=== PATIENT | female | born 1990 | race Caucasian/White ===

== ENCOUNTER 2017-10-23 09:20 | Outpatient (RCR) | payer BC, SELFPAY | END 2017-10-23 17:00 | disposition home or self-care (01) | LOC: PT 09:20 | PROVIDERS: Family Provider Nurse Practitioner Family; Visit Provider Nurse Practitioner Family | DX: S23.3XXA Sprain of ligaments of thoracic spine, initial encounter (principal); M41.25 Other idiopathic scoliosis, thoracolumbar region | CPT/HCPCS: 97014; 97110; 97163; G0283 ==

== ENCOUNTER 2018-03-01 10:06 | Outpatient (RCR) | payer BC, SELFPAY | END 2018-03-01 10:07 | disposition home or self-care (01) | LOC: PT 10:06 | PROVIDERS: Family Provider Nurse Practitioner Family; Visit Provider Nurse Practitioner Family | DX: M41.9 Scoliosis, unspecified (principal) | CPT/HCPCS: 97163 ==

== ENCOUNTER 2018-04-30 16:00 | Outpatient (RCR) | payer OTHER, BC, SELFPAY | END 2018-05-07 16:05 | disposition home or self-care (01) | LOC: PT 16:00 | PROVIDERS: Family Provider Nurse Practitioner Family; Visit Provider Nurse Practitioner Family | DX: M54.5 Low back pain (principal); M25.552 Pain in left hip | CPT/HCPCS: 97110; 97140; 97163 ==

== ENCOUNTER → 2019-02-28 07:10 | Outpatient (CLI) | payer BC, SELFPAY ==
--- NOTE | 2019-02-28 07:14 | US_ITS ---
PROCEDURE: US ABDOMEN COMPLETE CLINICAL INDICATION: ABD PAIN Upper abdominal pain, lower abdominal pain, nausea COMPARISON: No exams were available for comparison FINDINGS: PANCREAS: Unremarkable. No obvious mass or abnormal fluid collection. No ductal dilatation LIVER: No focal liver lesions demonstrated. Homogeneous echogenicity. No intrahepatic biliary ductal dilatation evident. There is appropriate direction of blood flow within a non dilated portal vein RIGHT KIDNEY: Unremarkable. Normal size and echogenicity. No hydronephrosis LEFT KIDNEY: Unremarkable. Normal size and echogenicity. No hydronephrosis GALLBLADDER: Status post cholecystectomy. Common bile duct is normal at 2 mm. AORTA: No evidence of aneurysmal dilatation. SPLEEN: Unremarkable. Normal size and echogenicity ASCITES: None demonstrated. IMPRESSION: Status post cholecystectomy otherwise negative Dictated by: Marc Samson MD 02/28/2019 16:04 Signed by: <Electronically signed by Marc Samson MD in [place]> 02/28/2019 16:04
--- NOTE | 2019-02-28 07:14 | US_ITS ---
PROCEDURE: US TRANSVAGINAL CLINICAL INDICATION: ABD PAIN COMPARISON: No exams were available for comparison TECHNIQUE: Pelvic pain FINDINGS: UTERUS: The uterus measures 8.5 x 3.6 x 4.4 cm. Combined endometrial thickness is 9 mm. No uterine mass evident.. RIGHT OVARY: Measures enlarged at 5 x 3.5 by 4.8 cm and contains a 3.7 cm cyst. Blood flow is present LEFT OVARY: Measures 2.8 x 1.9 cm and contains small follicles. Blood flow is noted CUL-DE-SAC FLUID: Small amount of fluid in the cul-de-sac OTHER FINDINGS: IMPRESSION: 3.7 cm right ovarian cyst with small amount of fluid in the cul-de-sac Dictated by: Marc Samson MD 02/28/2019 17:38 Signed by: <Electronically signed by Marc Samson MD in [place]> 02/28/2019 17:38
== END ==
PROVIDERS: PCP Nurse Practitioner Family; Visit Provider Nurse Practitioner Family
DX: R10.9 Unspecified abdominal pain (principal)
CPT/HCPCS: 76700; 76830

== ENCOUNTER 2020-11-07 11:25 | Emergency (ER) | payer BC, SELFPAY ==
[2020-11-07 11:32] VITALS: BP 117/79; PULSE 99; RESP 18; TEMP 36.6; O2SAT 99; BMI 25.6
[2020-11-07 12:50] VITALS: BP 117/79; PULSE 99; RESP 18; TEMP 36.6; O2SAT 99; BMI 25.6
[2020-11-07 12:55] VITALS: BP 117/79; PULSE 99; RESP 18; TEMP 36.6; O2SAT 99
[2020-11-07 13:07] LABS: Color,Urine Yellow (Yellow)
--- NOTE | 2020-11-07 13:07 | HMH.EDUTC ---
[facility] [place] Clinical Impression: UTI (urinary tract infection) Qualifiers: Urinary tract infection type: site unspecified Hematuria presence: with hematuria Qualified Code(s): N39.0 - Urinary tract infection, site not specified Disposition: Home, Self-Care Condition on Discharge: Good Instructions: Urinary Tract Infection Additional Instructions: Drink plenty of fluids. Take tylenol or ibuprofen for pain or fever. Take the medications as directed. Follow up with your regular doctor. GO TO THE ER FOR ANY WORSENING SYMPTOMS The pyridium will make your urine turn orange, this is an expected side effect. It will stain your clothes if it comes into contact with them. Prescriptions: Ondansetron [Zofran 4mg ODT] 4 mg PO Q8HP PRN #12 tab.rapdis PRN Reason: Nausea [facility] Nitrofurantoin Monohyd/M-Cryst [Macrobid 100 mg Capsule] 100 mg PO BID 5 Days #10 cap Transmission Status: [facility] Phenazopyridine HCl [Pyridium 200mg Tablet] 200 pow PO TID #6 tab [facility] Referrals: Pushpa Story APRN [Primary Care Provider] - Time of Disposition: 13:11 Medical Decision Making - Medical Records Medical records reviewed: No: I reviewed the patient's medical records. - Morales Inquiry Pt receiving controlled substance: No Vital Signs: 11/07/20 11:32 11/07/20 12:50 11/07/20 12:55 Temperature 97.8 F 97.8 F 97.8 F Temperature Source Oral Oral Pulse Rate 99 H Pulse Rate [Left Radial] 99 H 99 H Respiratory Rate 18 18 18 Blood Pressure 117/79 Blood Pressure [Left Arm] 117/79 117/79 Blood Pressure Mean [Left Arm] 91 91 Blood Pressure Source [Left Arm] Automatic Cuff Automatic Cuff Blood Pressure Position [Left Arm] Sitting Sitting 02 Sat by Pulse Oximetry 99 99 Oxygen Delivery Method Room Air Room Air - Lab Data Lab results reviewed: Yes: I reviewed the patient's lab results. Lab Results 11/07/20 12:58: Urine Color Yellow, Urine Appearance Cloudy, Urine pH 7.0, Ur Specific Panacea 1.025, Urine Protein 3+, Urine Glucose (UA) Negative, Urine Ketones 80, Urine Blood 3+, Urine Nitrate Positive A, Urine Bilirubin Negative, Urine Urobilinogen 1, Ur Leukocyte Esterase 1+ A Orders (Tests/Meds): ORDERS Category Date Time Status Urine Culture Stat Micro 11/07/20 12:45 Received [facility] HPI - General Stated complaint: vomiting, stomach pain, burning during urnination Time Seen by Provider: 11/07/20 13:07 Mode of Arrival: Ambulatory Source of Information: Patient Limitations: No Limitations Description of Symptoms (Recalled from Triage Doc. by RN): Hurting up inside and possibly stomach virus HEENT Symptoms (Recalled from RN notes): No Resp Symptoms (Recalled from RN notes): No Skin Symptoms (Recalled from RN notes): No MS Symptoms (Recalled from RN notes): No Functional Status (Recalled from RN notes): wnl - History of Present Illness Provider Complaint: she states that she has been having low back pain and burning while urinating for the past 2 days. - Related Data Previous Rx's Medication Instructions Recorded cetirizine 10 mg tablet 10 mg PO DAILY PRN #30 tab 10/28/20 gabapentin 100 mg capsule 100 mg PO TID #90 cap 10/28/20 methocarbamol 500 mg tablet 500 mg PO BID #60 tab 10/28/20 norgestimate 0.25 mg-ethinyl 1 tab PO DAILY #28 tab 10/28/20 estradiol 35 mcg tablet omeprazole magnesium 10 mg oral 10 mg PO DAILY #30 each 10/28/20 suspension,delayed release propranolol 60 mg capsule,24 60 mg PO DAILY #30 cap 10/28/20 hr,extended release quetiapine 100 mg tablet 100 mg PO HS #30 tab 10/28/20 vilazodone 20 mg tablet 20 mg PO DAILY #30 tab 10/28/20 Nitrofurantoin Monohyd/M-Cryst 100 mg PO BID 5 Days #10 cap 11/07/20 [Macrobid 100 mg Capsule] Ondansetron [Zofran 4mg ODT] 4 mg PO Q8HP PRN #12 tab.rapdis 11/07/20 Phenazopyridine HCl
[2020-11-07 13:08] LABS: Apearance,Urine Cloudy (Clear); Specific Gravity, Urine 1.025 (1.005-1.030)
[2020-11-07 13:09] LABS: Bilirubin,Urine Negative (Negative); Blood, Urine 3+ (Negative); Glucose,Urine (UA) Negative (Negative); Ketones,Urine 80 (Negative); Protein,Urine 3+ (Negative)
[2020-11-07 13:10] LABS: UTC Leukocyte Esterase,Urine 1+ (Negative); UTC Nitrate,Urine Positive (Negative); Urobilinogen,Urine 1 EU/dl (0.2)
== END 2020-11-07 13:14 | disposition home or self-care (01) ==
PROVIDERS: Emergency Provider Nurse Practitioner Family; PCP Nurse Practitioner Family
DX: N30.00 Acute cystitis without hematuria (principal); F41.8 Other specified anxiety disorders; E78.5 Hyperlipidemia, unspecified; F17.210 Nicotine dependence, cigarettes, uncomplicated; Z79.899 Other long term (current) drug therapy
CPT/HCPCS: 81003; 87077; 87086; 99202; G0463

== ENCOUNTER → 2020-11-16 08:03 | Outpatient (CLI) | payer BC, SELFPAY ==
--- NOTE | 2020-11-16 08:07 | CT_ITS ---
PROCEDURE: CT ABDOMEN PELVIS WO CON CLINICAL INDICATION: HEMATURIA COMPARISON: US US ABDOMEN COMPLETE from 02/28/2019 TECHNIQUE: Axial images obtained with sagittal and coronal reformats. All CT scans at the facility use one or more dose reduction, viz: automated exposure control, ma/kV adjustment per patient size (including targeted exams where dose is matched to indication, i.e. head), or iterative reconstruction technique. FINDINGS: LOWER THORAX: Atelectatic or fibrotic changes are present in the lung bases. ABDOMEN & PELVIS: Prior cholecystectomy. The liver, spleen, adrenal glands, and pancreas have an unremarkable appearance. No renal or ureteral calculi are evident. There is some heterogeneous density in the proximal right ureteral region. This may be related to partially duplicated ureter or small ureterocele. CT of the kidneys with renal protocol without and with contrast suggested for further evaluation. The left kidney has an unremarkable appearance. No intestinal obstruction or free air. No evidence of appendicitis or diverticulitis. No pelvic mass or abnormal fluid collection. There is mild thoracolumbar scoliosis convex left. There is a tiny umbilical hernia containing fat. IMPRESSION: 1. No renal or ureteral calculi. 2. Heterogeneous density of the proximal right ureter possibly related to partial duplex collecting system or small ureterocele. CT of the kidneys without and with contrast with renal protocol suggested for further evaluation. Dictated by: Marc Samson MD 11/16/2020 08:50 Marc Samson MD in [place] 11/16/2020 08:50
== END ==
PROVIDERS: PCP Nurse Practitioner Family; Visit Provider Nurse Practitioner Family
DX: R31.9 Hematuria, unspecified (principal)
CPT/HCPCS: 74176

== ENCOUNTER → 2020-11-18 11:00 | Outpatient (CLI) | payer BC, SELFPAY ==
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
== END ==
PROVIDERS: PCP Nurse Practitioner Family; Visit Provider Nurse Practitioner Family
DX: D41.01 Neoplasm of uncertain behavior of right kidney (principal)
CPT/HCPCS: 74170; Q9967

== ENCOUNTER → 2020-11-25 18:59 | Outpatient (CLI) | payer BC, SELFPAY | PROVIDERS: Visit Provider Nurse Practitioner Family | DX: M54.9 Dorsalgia, unspecified (principal); G89.29 Other chronic pain | CPT/HCPCS: 87086; 87088; 87186 ==

== ENCOUNTER → 2021-02-24 14:34 | Outpatient (CLI) | payer BC, SELFPAY ==
[2021-02-24 15:51] LABS: Amphetamine/Metha Screen,Urine Negative ng/ml (<1000)
[2021-02-24 15:52] LABS: Barbiturates Screen,Urine Negative ng/ml (<200); Benzodiazepines Screen,Urine Negative ng/ml (<200)
[2021-02-24 15:53] LABS: Cannabinoid Screen,Urine Positive ng/ml (<50)
[2021-02-24 15:54] LABS: Cocaine Screen,Urine Negative ng/ml (<300); Methadone Screen,Urine Negative ng/ml (<300)
[2021-02-24 15:55] LABS: Opiate Screen,Urine Negative ng/ml (<300); Phencyclidine Screen,Urine Negative ng/ml (<25)
== END ==
PROVIDERS: Visit Provider Nurse Practitioner Family
DX: Z79.899 Other long term (current) drug therapy (principal)
CPT/HCPCS: 80305

== ENCOUNTER 2021-03-14 15:23 | Emergency (ER) | payer BC, SELFPAY ==
[2021-03-14 15:10] VITALS: BP 114/74; PULSE 76; RESP 18; TEMP 37.1; O2SAT 100; BMI 28.8
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
[2021-03-14 15:40] LABS: Urine Pregnancy, HCG Qual. Negative (Negative)
[2021-03-14 16:30] VITALS: BP 111/70; PULSE 68; O2SAT 100
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
[2021-03-14 17:00] VITALS: BP 133/84; PULSE 72; O2SAT 100
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
--- NOTE | 2021-03-14 17:38 | PC.NURSE ---
pt with rad
[2021-03-14 18:12] VITALS: BP 133/84; PULSE 72; RESP 18; TEMP 37.1; O2SAT 100
== END 2021-03-14 18:13 | disposition home or self-care (01) ==
PROVIDERS: Emergency Provider Emergency Medicine; PCP Nurse Practitioner Family
DX: S16.1XXA Strain of muscle, fascia and tendon at neck level, initial encounter (principal); S29.011A Strain of muscle and tendon of front wall of thorax, initial encounter; S80.212A Abrasion, left knee, initial encounter; V43.63XA Car passenger injured in collision with pick-up truck in traffic accident, initial encounter; Y92.488 Other paved roadways as the place of occurrence of the external cause
CPT/HCPCS: 70450; 71046; 72125; 73000; 73502; 73552; 73562; 81025; 96372; 99282

== ENCOUNTER → 2021-03-24 17:19 | Outpatient (CLI) | payer BC, SELFPAY ==
[2021-03-24 19:10] LABS: Barbiturates Screen,Urine Negative ng/ml (<200)
[2021-03-24 19:11] LABS: Amphetamine/Metha Screen,Urine Negative ng/ml (<1000); Benzodiazepines Screen,Urine Negative ng/ml (<200)
[2021-03-24 19:12] LABS: Cannabinoid Screen,Urine Negative ng/ml (<50)
[2021-03-24 19:13] LABS: Cocaine Screen,Urine Negative ng/ml (<300); Methadone Screen,Urine Negative ng/ml (<300)
[2021-03-24 19:14] LABS: Opiate Screen,Urine Negative ng/ml (<300); Phencyclidine Screen,Urine Negative ng/ml (<25)
== END ==
PROVIDERS: Visit Provider Nurse Practitioner Family
DX: G62.9 Polyneuropathy, unspecified (principal); Z79.899 Other long term (current) drug therapy
CPT/HCPCS: 80305

== ENCOUNTER 2021-04-03 22:29 | Emergency (ER) | payer BC, SELFPAY ==
[2021-04-03 22:30] VITALS: BP 132/73; PULSE 105; RESP 16; TEMP 36.9; O2SAT 98; BMI 29.5
[2021-04-03 23:15] LABS: Microscopic, Urine URINE MICROSCOPIC (MICROSCOPIC)
[2021-04-03 23:17] LABS: Appearance,Urine CLEAR (Clear); Bilirubin,Urine Negative (Negative); Blood, Urine 1+ (Negative); Color,Urine YELLOW (Yellow); Glucose,Urine (UA) Negative (Negative); Ketones,Urine Negative (Negative); Leukocyte Esterase,Urine Negative (Negative); Nitrate,Urine Negative (Negative); Protein,Urine Negative (Negative); Specific Gravity, Urine 1.015 (1.005-1.030); Urobilinogen,Urine 0.2 EU/dl (0.2)
[2021-04-03 23:21] LABS: Urine Pregnancy, HCG Qual. Negative (Negative)
[2021-04-03 23:22] LABS: Amorphous Sediment,Urine 1+ /lpf; WBC,Urine Occasional #/hpf (0-3)
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
[2021-04-03 23:50] LABS: Basophils # 0.1 K/mm3 (0-0.2); Basophils % 1.1 % (0.1-2.0); Eosinophils # 0.2 K/mm3 (0.0-0.4); Eosinophils % 2.5 % (0.1-12.0); Hematocrit 41.1 % (37.0-47.0); Hemoglobin 13.9 g/dL (12.2-16.2); Lymphocytes # 2.2 K/mm3 (0.7-4.5); Lymphocytes % 31.4 % (10-50); Mean Corpuscular HGB Conc 33.8 g/dL (31.8-35.4); Mean Corpuscular Hemoglobin 31.7 pg (27.0-31.2); Mean Corpuscular Volume 93.6 fl (81-99); Mean Platelet Volume 8.2 fl (7.4-10.4); Monocytes # 0.4 K/mm3 (0.1-1.0); Monocytes % 5.8 % (1.7-9.3); Neutrophils # 4.1 K/mm3 (1.8-7.8); Neutrophils % 59.1 % (37.0-80.0); Platelet Count 282 K/mm3 (142-424); Red Blood Count 4.39 M/mm3 (4.20-5.40); Red Cell Distribution Width 13.5 % (11.5-17.5); White Blood Count 6.9 K/mm3 (4.8-10.8)
[2021-04-04 00:01] LABS: Alanine Aminotransferase 19 U/L (12-78); Albumin/Globulin Ratio 1.2 (1.1-1.8); Alkaline Phosphatase 63 U/L (38-126); Amylase 65 U/L (30-110); Anion Gap 6.3 mEq/L (5-15); Aspartate Amino Transferase 31 U/L (14-36); Bilirubin,Total 0.4 mg/dl (0.2-1.3); Blood Urea Nitrogen 7 mg/dl (7-17); Calcium 9.2 mg/dl (8.4-10.2); Carbon Dioxide 27 mmol/L (22.0-30.0); Chloride 105 mmol/L (98-107); Creatinine Clearance Estimated 145 mL/min (50-200); Estimated Glomerular Filt Rate 118 ml/min (>60); GFR (African American) 143 ML/MIN (>60); Globulin 3.3 g/dL (1.3-3.2); Glucose 91 mg/dl (74-100); Lipase 36 U/L (23-300); Potassium 3.3 mmoL/L (3.5-5.1); Sodium 135 mmol/L (136-145); Total Protein,Serum 7.3 g/dl (6.3-8.2)
--- NOTE | 2021-04-04 00:03 | HMH.EDNVD ---
ED Disposition Clinical Impression: Abdominal pain Qualifiers: Abdominal location: epigastric Qualified Code(s): R10.13 - Epigastric pain Disposition: Home, Self-Care Condition on Discharge: Good Instructions: DI for Nausea -- Adult Additional Instructions: see pcp for follow up Prescriptions: ondansetron HCL [Zofran 4mg Tab] 4 mg PO TID #21 tab Transmission Status: Pending to [facility] Referrals: Valeriy Scott APRN [Primary Care Provider] - - Critical Care Critical Care Time: No Attestation: On 04/03/21, the high probability of a clinically significant, sudden or life threatening deterioration of the following system(s) required my full and direct attention, intervention and personal management. The time I documented below is in addition to time spent performing reported procedures but includes the following listed in this critical care notation. Medical Decision Making - Medical Records Medical records reviewed: Yes: I reviewed the patient's medical records. - Morales Inquiry Pt receiving controlled substance: No Vital Signs: 04/03/21 22:30 Temperature 98.4 F Temperature Source Oral Pulse Rate [Right] 105 H Respiratory Rate 16 Blood Pressure [Right Arm] 132/73 Blood Pressure Mean [Right Arm] 92 02 Sat by Pulse Oximetry 98 - Lab Data Lab results reviewed: Yes: I reviewed the patient's lab results. Lab Results 04/03/21 23:05: Urine HCG, Qual Negative 04/03/21 23:05: Urine Color Yellow, Urine Appearance Clear, Urine pH 6.0, Ur Specific [place] 1.015, Urine Protein Negative, Urine Glucose (UA) Negative, Urine Ketones Negative, Urine Blood 1+, Urine Nitrate Negative, Urine Bilirubin Negative, Urine Urobilinogen 0.2, Ur Leukocyte Esterase Negative, Urine RBC 5-10, Urine WBC Occasional, Ur Squamous Epith Cells 10-20, Amorphous Sediment 1+ 04/03/21 23:05: Urine Opiates Screen Negative, Urine Methadone Screen Negative, Ur Barbituates Screen Negative, Ur Phencyclidine Scrn Negative, Ur Amphetamines Screen Negative, U Benzodiazepines Scrn Negative, Urine Cocaine Screen Negative, U Marijuana (THC) Screen Positive H 04/03/21 23:29: WBC 6.9, RBC 4.39, Hgb 13.9, Hct 41.1, MCV 93.6, MCH 31.7 H, MCHC 33.8, RDW 13.5, Plt Count 282, MPV 8.2, Neut % (Auto) 59.1, Lymph % (Auto) 31.4, Lee % (Auto) 5.8, Eos % (Auto) 2.5, Baso % (Auto) 1.1, Neut # (Auto) 4.1, Lymph # (Auto) 2.2, Lee # (Auto) 0.4, Eos # (Auto) 0.2, Baso # (Auto) 0.1, ESR 27 H 04/03/21 23:29: Sodium 135 L, Potassium 3.3 L, Chloride 105, Carbon Dioxide 27, Anion Gap 6.3, BUN 7, Creatinine 0.60, Estimated Creat Clear 145, Estimated GFR 118, Est GFR ( Amer) 143, Glucose 91, Calcium 9.2, Total Bilirubin 0.4, AST 31, ALT 19, Alkaline Phosphatase 63, C-Reactive Protein 11.2 H, Total Protein 7.3, Albumin 4.0, Globulin 3.3 H, Albumin/Globulin Ratio 1.2, Amylase 65, Lipase 36, Procalcitonin 0.031 Result diagrams: 04/03/21 23:29 04/03/21 23:29 Orders (Tests/Meds): ED MEDICATIONS Generic Name Dose Route Start Last Admin Trade Name Freq PRN Reason Stop Dose Admin Sodium Chloride 1,000 mls @ 999 mls/hr 04/03/21 23:45 04/04/21 00:18 Sod Chlor 0.9% 1000ml Bag IV 04/04/21 00:45 999 mls/hr .Q1H1M NELLA Administration Sodium Chloride 8 ml 04/03/21 23:39 Sodium Chloride 0.9% 10ml Vial IV 05/03/21 23:38 NEEDED PRN dilute pepcid Discontinued Medications Generic Name Dose Route Start Last Admin Trade Name Freq PRN Reason Stop Dose Admin Famotidine 20 mg 04/03/21 23:39 04/04/21 00:17 Famotidine 20mg/2ml Vial IV 04/03/21 23:40 20 mg ONCE ONE Administration Iopamidol 75 ml 04/03/21 23:54 04/03/21 23:55 Iopamidol-370 (76%);100ml Bottle IV 04/03/21 23:55 75 ml ONCE ONE Administration Ketorolac Tromethamine 30 mg 04/03/21 23:39 04/04/21 00:17 Ketorolac 30mg/Ml Vial IV 04/03/21 23:40 30 mg ONCE ONE Administration Metoclopramide HCl 10 mg 04/03/21 23:39 04/04/21 00:17 Metoclopramide Hc
[2021-04-04 00:07] LABS: C-Reactive Protein 11.2 mg/L (0-4)
[2021-04-04 00:08] LABS: Barbiturates Screen,Urine Negative ng/ml (<200); Benzodiazepines Screen,Urine Negative ng/ml (<200)
[2021-04-04 00:09] LABS: Amphetamine/Metha Screen,Urine Negative ng/ml (<1000)
[2021-04-04 00:10] LABS: Cannabinoid Screen,Urine Positive ng/ml (<50); Cocaine Screen,Urine Negative ng/ml (<300)
[2021-04-04 00:11] LABS: Methadone Screen,Urine Negative ng/ml (<300)
[2021-04-04 00:12] LABS: Opiate Screen,Urine Negative ng/ml (<300); Phencyclidine Screen,Urine Negative ng/ml (<25)
[2021-04-04 00:20] LABS: Procalcitonin 0.031 ng/mL (0.0-2.0)
[2021-04-04 00:30] LABS: Erythrocyte Sedimentation Rate 27 mm/hr (0-20)
[2021-04-04 01:59] VITALS: BP 124/72; PULSE 100; RESP 16; TEMP 36.9; O2SAT 98
== END 2021-04-04 02:02 | disposition home or self-care (01) ==
PROVIDERS: Emergency Provider Emergency Medicine; PCP Nurse Practitioner Family
DX: R10.13 Epigastric pain (principal); F41.8 Other specified anxiety disorders; E78.5 Hyperlipidemia, unspecified; F17.210 Nicotine dependence, cigarettes, uncomplicated; Z88.0 Allergy status to penicillin; Z88.2 Allergy status to sulfonamides
CPT/HCPCS: 74177; 80053; 80305; 81001; 81025; 82150; 83690; 84145; 85025; 85651; 86140; 96365; 96375; 99283; J2405; Q9967

== ENCOUNTER 2021-04-12 11:19 | Emergency (ER) | payer BC, SELFPAY ==
[2021-04-12 12:25] VITALS: BP 126/77; PULSE 84; RESP 20; TEMP 36.8; O2SAT 100; BMI 29.5
--- NOTE | 2021-04-12 12:55 | HMH.EDUTC ---
[facility] [place] Disposition Clinical Impression: URI (upper respiratory infection) Qualifiers: URI type: unspecified URI Qualified Code(s): J06.9 - Acute upper respiratory infection, unspecified Nausea and vomiting Qualifiers: Vomiting type: unspecified Vomiting Intractability: unspecified Qualified Code(s): R11.2 - Nausea with vomiting, unspecified Disposition: Home, Self-Care Condition on Discharge: Good Instructions: Sinusitis, Diarrhea, DI for Ear Pain-Adult, Nausea and Vomiting-Adult Additional Instructions: *Monitor Temp, Over the counter Motrin or Tylenol as directed/as needed Tylenol every 4 hours and Motrin every 6 hours (as long as your family doctor has told you that you can take it) for fever or pain. and straight to ER if unable to lower temp less than 101.0 after medication given *Warm salt water gargles may help to soothe the throat *Throat Lozenges *Warm fluids like tea with honey may help to soothe the throat *Sleep elevated *Humidifier/Vaporizer *Drink extra fluids with and between meals. If you have difficulty drinking, try very small amounts of water or suck on ice chips. ? Avoid fruit juices, as these do not replace minerals and can actually increase diarrhea. ? Children and adults can use sports drinks to replenish electrolytes. Younger children and infants should use products formulated for children, like oral rehydration solutions. ? Eat food in small amounts and let your stomach recover. ? Get lots of rest. You may feel tired or weak. ? No greasy or fried foods for the next 24-48 hours BRAT diet Bananas Rice Apples and Radar Base ? Make sure to drink plenty of liquids ? Return if needed ? Straight to ER if any life threatening symptoms ? Zofran as prescribed ? You was given an outpatient order for diarrhea panel, please collect specimen and bring back to outpatient lab then call back to the [facility] or follow up with family doctor for results ? Follow up with family doctor in the next 48-72 hours if no improvement or any worsening of symptoms Your throat swab was sent for culture. Those results are typically sent to your primary care. Be sure to follow up in 2-3 days with your family doctor/primary care physician if no improvement so they can review those result and treat if necessary. If you don?t have a primary care doctor, I recommend you get one but in the mean time, you will have to return to a walk in clinic Follow up IMMEDIATELY for new or worsening symptoms or no Noticeable improvement over the next 48-72 hours. 911 for difficulty breathing or swallowing You were tested for today for COVID19 your test result should be back in the next 24-48 hours, you was given handout on how to [facility] to get your results if you have trouble logging on you may call the [facility] You was given a handout with instructions for Self Quarantine and Self isolation for while you wait on test results and what to do if they are positive If you are positive the Health Dept will be contacting you also Make sure to take your Vitamins Vit. C Vit D and Zinc if you can take them Prescriptions: Fluticasone Propionate [Flonase 50mcg nasal spray 16gm] 1 spr NS DAILY #1 each Transmission Status: Pending to [facility] Azithromycin [Z-Mike 250mg Tab] 250 mg PO DIRECTED #6 tab Transmission Status: Pending to [facility] Ondansetron [Zofran 4mg ODT] 4 mg PO TIDP PRN #10 tab PRN Reason: Nausea Transmission Status: Pending to [facility] Referrals: Provider,Referral, MD [Primary Care Provider] - As needed Forms: Work/School Release Time of Disposition: 13:10 Medical Decision Making - Morales Inquiry Pt receiving controlled substance: No Morales was queried for this patient: No Vital Signs: 04/12/21 12:25 04/12/21 13:17 Temperature 98.2 F 98.2 F Temperature Source Oral Pulse Rate 84 Pulse Rate [Right Brachial] 84 Respiratory Rate 20 20 Blood Pressure 126/77 Blood Pressure [Right Arm] 126/77 B
[2021-04-12 12:56] LABS: UTC Strep Screen (Rapid) Negative (Negative)
[2021-04-12 13:14] LABS: UTC Pregnancy Test, Urine Negative (Negative)
[2021-04-12 13:17] VITALS: BP 126/77; PULSE 84; RESP 20; TEMP 36.8; O2SAT 100
== END 2021-04-12 13:23 | disposition home or self-care (01) ==
PROVIDERS: Emergency Provider Nurse Practitioner
DX: Z20.822 Contact with and (suspected) exposure to COVID-19 (principal); J06.9 Acute upper respiratory infection, unspecified; R11.2 Nausea with vomiting, unspecified
CPT/HCPCS: 81025; 87880; 99203; C9803; G0463; U0003; U0005

== ENCOUNTER 2021-05-01 12:24 | Emergency (ER) | payer BC, SELFPAY ==
[2021-05-01 12:30] VITALS: BP 143/51; PULSE 118; RESP 24; TEMP 36.9; O2SAT 97; BMI 23.7
--- NOTE | 2021-05-01 12:56 | HMH.EDUTC ---
[facility] [place] Disposition Clinical Impression: URI (upper respiratory infection) Qualifiers: URI type: unspecified URI Qualified Code(s): J06.9 - Acute upper respiratory infection, unspecified Nausea & vomiting Qualifiers: Vomiting type: unspecified Vomiting Intractability: non-intractable Qualified Code(s): R11.2 - Nausea with vomiting, unspecified Disposition: Home, Self-Care Condition on Discharge: Good Instructions: DI for Viral Upper Respiratory Infection -- Adult, DI for Nausea -- Adult, Nausea and Vomiting-Adult Additional Instructions: covid swab was sent to lab, call later today for results. self isolate until test results are known to be negative No sign of a bacterial infection. Likely viral. Viruses can take 7-14 days to run their course. Nasal saline and bulb syringe or nose Patrica to remove nasal drainage to help with nasal congestion. Hard to eat, drink, sleep with nasal congestion so important to keep this cleaned out. Monitor temp. Tylenol or Motrin as needed for pain or fever Encourage fluids, water, Gatorade, Powerade, Pedialyte if infant/toddler/child Warm salt water gargles Warm fluids Sore throat lozenges Sleep elevated Humidifier/vaporizer Follow-up immediately for new or worsening symptoms or no noticeable improvement over the next 48-72 hours. Monitor temperature. Seek treatment if fever develops. Follow-up immediately if new or worse symptoms worsen or no noticeable improvement over 48 hours. Increase fluids such as water, Gatorade, Powerade, juice or Pedialyte with limited formula/dietary in children No food is okay as long as you are drinking. Once ready to eat start bland such as bananas, rice, applesauce, toast. Contagious until no diarrhea, vomiting, fever times 48 hours without medication Avoid antidiarrheals unless told otherwise. Best to let the virus run its course. Follow-up immediately for new or worsening symptoms or no noticeable improvement over the next 48 hours. Prescriptions: Promethazine HCl [Phenergan 12.5mg Supp] 12.5 mg RC Q8 PRN 3 Days #5 supp PRN Reason: Nausea Transmission Status: Pending to [facility] Referrals: Provider,Referral, [Primary Care Provider] - Time of Disposition: 13:01 Medical Decision Making - Morales Inquiry Pt receiving controlled substance: No Orders (Tests/Meds): ORDERS Category Date Time Status Covid-19 Nasal PCR ([facility]) Routine Lab 05/01/21 12:36 Ordered [facility] HPI - General Chief complaint: Urgent [facility] Stated complaint: no taste/smell, vomiting, diarrhea Time Seen by Provider: 05/01/21 12:56 Mode of Arrival: Ambulatory Source of Information: Patient Limitations: No Limitations - History of Present Illness Provider Complaint: 31 yr old female presnets for n/v/d x2 days, nasal congestion,body aches,chills and sore throat. has tried zofran but not helping - Related Data Home Medications Medication Instructions Recorded Confirmed Omeprazole [Omeprazole 20mg 20 mg PO DAILY 04/12/21 04/12/21 Capsule] Propranolol HCl [Propranolol HCl 60 mg PO DAILY 04/12/21 04/12/21 ER] Quetiapine Fumarate 100 mg PO HS 04/12/21 04/12/21 Vilazodone HCl [Viibryd 30-day 1 tab PO UD DOSE PK 04/12/21 04/12/21 Dose Pack] norgestimate-ethinyl estradioL 1 tab PO DAILY 04/12/21 04/12/21 [Sprintec 28 Day Tablet] Previous Rx's Medication Instructions Recorded cetirizine 10 mg tablet 10 mg PO DAILY PRN #30 tab 02/01/21 Azithromycin [Z-Mike 250mg Tab] 250 mg PO DIRECTED #6 tab 04/12/21 Fluticasone Propionate [Flonase 1 spr NS DAILY #1 each 04/12/21 50mcg nasal spray 16gm] Ondansetron [Zofran 4mg ODT] 4 mg PO TIDP PRN #10 tab 04/12/21 Promethazine HCl [Phenergan 12.5mg 12.5 mg RC Q8 PRN 3 Days #5 supp 05/01/21 Supp] Allergies Allergy/AdvReac Type Severity Reaction Status Date / Time codeine Allergy Intermediate I-RASH Verified 03/24/21 13:39 Penicillins Allergy Intermediate I-RASH Verified 03/24/21
[2021-05-01 13:05] VITALS: BP 143/51; PULSE 118; RESP 20; TEMP 36.9; O2SAT 97
[2021-05-01 13:14] LABS: UTC Influenza A Antigen Negative (Negative); UTC Influenza B Antigen Negative (Negative)
== END 2021-05-01 13:24 | disposition home or self-care (01) ==
PROVIDERS: Emergency Provider Nurse Practitioner Family
DX: J06.9 Acute upper respiratory infection, unspecified (principal); Z20.822 Contact with and (suspected) exposure to COVID-19; F41.8 Other specified anxiety disorders; E78.5 Hyperlipidemia, unspecified
CPT/HCPCS: 87804; 99202; C9803; G0463; U0003; U0005

== ENCOUNTER → 2021-08-20 16:00 | Outpatient (CLI) | payer MEDICAID, SELFPAY | PROVIDERS: Visit Provider Nurse Practitioner Family | DX: J02.9 Acute pharyngitis, unspecified (principal) ==

== ENCOUNTER → 2021-11-09 10:18 | Outpatient (CLI) | payer MEDICAID, SELFPAY ==
--- NOTE | 2021-11-09 10:18 | US_ITS ---
FINAL REPORT CLINICAL HISTORY: Abnormal menses: skipping periods; bilat pelvic pain FINDINGS: Transvaginal sonographic images of the pelvis were obtained. The uterus measures 7.2 x 4.1 x 4.7 cm. The endometrium measures 8 mm, which is within normal limits. No uterine mass is identified. The right ovary measures 3.2 cm in length and left ovary measures 2.8 cm in length. Normal blood flow seen to the ovaries. There is no evidence of free fluid. IMPRESSION: No acute abnormality identified. Reviewed, Interpreted and Dictated by Mason Nino III, MD Transcribed by Daysi Trevizo Authenticated by Mason Nino III, MD on 11/09/2021 01:21:27 PM [facility]
== END ==
PROVIDERS: PCP Nurse Practitioner Family; Visit Provider Obstetrics & Gynecology
DX: N92.6 Irregular menstruation, unspecified (principal)
CPT/HCPCS: 76830

== ENCOUNTER 2022-05-01 17:50 | Emergency (ER) | payer MEDICAID, SELFPAY ==
[2022-05-01 19:00] VITALS: BP 126/82; PULSE 84; RESP 16; TEMP 36.7; O2SAT 97; BMI 28.5
--- NOTE | 2022-05-01 19:26 | EXP.UTC ---
Discharge Plan Disposition Patient Disposition: Home, Self-Care Condition: Good Prescriptions Prescriptions: No Action fluticasone propionate 50 mcg/actuation spray,suspension 1 spray INTRANASAL DAILY Qty: 1 2RF Rx Instructions: each nostril daily omeprazole 20 mg capsule,delayed release(DR/EC) 20 mg PO DAILY Qty: 90 0RF quetiapine 100 mg tablet 100 mg PO HS Qty: 90 0RF Viibryd 40 mg tablet 40 mg PO DAILY Qty: 30 2RF Rx Instructions: must administer with a meal/food gabapentin 600 mg tablet 600 mg PO TID Qty: 90 2RF albuterol sulfate [ProAir HFA] 90 mcg/actuation HFA aerosol inhaler 2 puff INHALATION Q6H Qty: 6.7 0RF cetirizine [Zyrtec] 10 mg tablet 10 mg PO DAILY PRN (Reason: allergy symptoms) Qty: 30 11RF propranolol 60 mg capsule,extended release 24 hr 60 mg PO DAILY Qty: 90 0RF Referrals Follow up/Referrals: Valeriy Scott APRN [Primary Care Provider] - See instructions Activity Restrictions/Add. Instructions Additional Instructions/Restrictions: No sign of a bacterial infection. Likely viral. Viruses can take 7-14 days to run their course. Nasal saline and bulb syringe or nose Patrica to remove nasal drainage to help with nasal congestion. Hard to eat, drink, sleep with nasal congestion so important to keep this cleaned out. Monitor temp. Tylenol or Motrin as needed for pain or fever Encourage fluids, water, Gatorade, Powerade, Pedialyte if /toddler/child Warm salt water gargles Warm fluids Sore throat lozenges Sleep elevated Humidifier/vaporizer Follow-up immediately for new or worsening symptoms or no noticeable improvement over the next 48-72 hours. Clinical Impressions Clinical Impression: Acute upper respiratory infection Instructions Patient Instructions: DI for Viral Upper Respiratory Infection -- Adult Discharge ED Provider: Shy ([facility])Toribio [facility] [place] [place] HPI General Stated complaint: vomiting,HERNANDEZ,feverish Mode of Arrival: Ambulatory Source of Information: Patient Limitations: No Limitations Time Seen by Provider: 05/01/22 19:27 Description of Symptoms (Recalled from Triage Doc. by RN): PATIENT C/O FLU SYMPTOMS HEENT Symptoms (Recalled from RN notes): No Resp Symptoms (Recalled from RN notes): No Skin Symptoms (Recalled from RN notes): No MS Symptoms (Recalled from RN notes): No Functional Status (Recalled from RN notes): WNL History of Present Illness Provider Complaint: 32 yr old female presents for nasal congestion, cough, fever, chills and body aches for 2 days Related Data Previous Rx's Medication Instructions Recorded cetirizine 10 mg tablet (Zyrtec) 10 mg PO DAILY PRN allergy 06/07/21 symptoms #30 tabs propranolol 60 mg capsule,24 60 mg PO DAILY . #90 caps 06/07/21 hr,extended release albuterol sulfate 90 mcg/actuation 2 puff inhalation Q6H #6.7 grams 04/28/22 aerosol inhaler (ProAir HFA) fluticasone propionate 50 1 spray intranasal DAILY #1 ea 04/28/22 mcg/actuation nasal spray,suspension gabapentin 600 mg tablet 600 mg PO TID #90 tabs 04/28/22 omeprazole 20 mg capsule,delayed 20 mg PO DAILY GERD #90 caps 04/28/22 release quetiapine 100 mg tablet 100 mg PO HS . #90 tabs 04/28/22 vilazodone 40 mg tablet (Viibryd) 40 mg PO DAILY #30 tabs 04/28/22 Allergies Allergy/AdvReac Type Severity Reaction Status Date / Time cefdinir Allergy Mild vomiting Verified 04/30/22 17:41 Penicillins Allergy Mild Rash Verified 04/30/22 17:41 Sulfa (Sulfonamide Allergy Mild rash Verified 04/30/22 17:41 Antibiotics) amoxicillin Allergy Verified 05/01/22 19:15 Worker's Comp Is this a Worker's Comp case?: No PFSH PFSH Social History , UTILIZATION REVIEW RN) Smoking Status: Current every day smoker tobacco type: cigarettes packs per day: 1 second hand exposure: No alcohol intake: never substance use type: denies use current occupational status: other Travel in the last 8 we
[2022-05-01 19:35] VITALS: BP 126/82; PULSE 84; RESP 16; TEMP 36.7; O2SAT 97
[2022-05-01 19:39] LABS: UTC Influenza A Antigen Negative (Negative); UTC Influenza B Antigen Negative (Negative)
[2022-05-01 19:42] LABS: Adenovirus,PCR Not Detected (NotDetected); Bordetella Pertussis Not Detected (NotDetected); Chlamydophila Pneumoniae, PCR Not Detected (NotDetected); Coronavirus 19, PCR Not Detected (NotDetected); Coronavirus 229E Not Detected (NotDetected); Coronavirus NL63 Not Detected (NotDetected); Coronavirus OC43 Not Detected (NotDetected); Coronovirus HKU1,PCR Not Detected (NotDetected); Human Metapneumovirus Not Detected (NotDetected); Influenza A, PCR Not Detected (NotDetected); Influenza AH1, 2009 Not Detected (NotDetected); Influenza AH1, PCR Not Detected (NotDetected); Influenza AH3,PCR Not Detected (NotDetected); Influenza B, PCR Not Detected (NotDetected); Mycoplasma Pneumoniae, PCR Not Detected (NotDetected); Parainfluenza 1, PCR Not Detected (NotDetected); Parainfluenza 2, PCR Not Detected (NotDetected); Parainfluenza 3, PCR Not Detected (NotDetected); Parainfluenza 4, PCR Not Detected (NotDetected); Respiratory Syncytial Virus Not Detected (NotDetected); Rhinovirus/Enterovirus Not Detected (NotDetected)
== END 2022-05-01 19:40 | disposition home or self-care (01) ==
PROVIDERS: Emergency Provider Nurse Practitioner Family; PCP Nurse Practitioner Family
DX: J06.9 Acute upper respiratory infection, unspecified (principal)
CPT/HCPCS: 87581; 87632; 87798; 87804; 99212; C9803; G0463; U0003; U0005

== ENCOUNTER → 2022-05-13 13:00 | Outpatient (CLI) | payer MEDICAID, SELFPAY ==
[2022-05-13 18:05] LABS: Adenovirus,PCR Not Detected (NotDetected); Bordetella Pertussis Not Detected (NotDetected); Chlamydophila Pneumoniae, PCR Not Detected (NotDetected); Coronavirus 19, PCR Not Detected (NotDetected); Coronavirus 229E Not Detected (NotDetected); Coronavirus NL63 Not Detected (NotDetected); Coronavirus OC43 Not Detected (NotDetected); Coronovirus HKU1,PCR Not Detected (NotDetected); Human Metapneumovirus Not Detected (NotDetected); Influenza A, PCR Not Detected (NotDetected); Influenza AH1, 2009 Not Detected (NotDetected); Influenza AH1, PCR Not Detected (NotDetected); Influenza AH3,PCR Not Detected (NotDetected); Influenza B, PCR Not Detected (NotDetected); Mycoplasma Pneumoniae, PCR Not Detected (NotDetected); Parainfluenza 1, PCR Not Detected (NotDetected); Parainfluenza 2, PCR Not Detected (NotDetected); Parainfluenza 3, PCR Not Detected (NotDetected); Respiratory Syncytial Virus Not Detected (NotDetected); Rhinovirus/Enterovirus Not Detected (NotDetected)
[2022-05-14 14:11] LABS: Parainfluenza 4, PCR Detected (NotDetected)
== END ==
PROVIDERS: PCP Student in an Organized Health Care Education/Training Program; Visit Provider Student in an Organized Health Care Education/Training Program
DX: R05.9 Cough, unspecified (principal); R09.89 Other specified symptoms and signs involving the circulatory and respiratory systems; J20.4 Acute bronchitis due to parainfluenza virus
CPT/HCPCS: 87581; 87632; 87798; C9803; U0003; U0005

== ENCOUNTER → 2023-04-24 08:32 | Outpatient (POV) | payer MEDICAID, SELFPAY ==
[2023-04-24 09:45] VITALS: BP 125/76; PULSE 109; RESP 18; O2SAT 100; BMI 24.2
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
== END ==
PROVIDERS: PCP Nurse Practitioner Family; Visit Provider Nurse Anesthetist, Certified Registered
DX: M54.50 Low back pain, unspecified (principal); M54.16 Radiculopathy, lumbar region
CPT/HCPCS: 99202; G0463

== ENCOUNTER 2023-06-05 09:00 | Outpatient (RCR) | payer MEDICAID, SELFPAY ==
--- NOTE | 2023-05-29 10:35 | HMH.PTOPEV ---
PT Outpatient Evaluation Rehab PT Outpatient Evaluation Start: 05/29/23 09:32 Freq: Status: Active Protocol: Document 05/29/23 09:32 PDESEROUEugenia (Rec: 05/29/23 10:35 PDESEROUX [id number]) E-signed By Yevgeniy Hernandez, PT Outpatient Therapy Subjective History Subjective History Pt. is a 33 year old female who presents to [facility] in [place] for the initial evaluation this date(05/29/23) w/ c/o subacute on chronic and constant B/L lumbar spine P! and stiffness w/ intermittent BLE radiating pressure and numbness of insidious onset that has progressively worsened over the last few weeks. Pt. denies any trauma as DOV for symptoms worsening, states having LBP! for all my life. Pt. described symptoms as a constant throbbing ache in the lumbar spine that will switch from the left to right side intermittently. Pt. reports having a pressure radiate usually to the knee, but will also refer to the foot intermittently. Recent diagnostic imaging indicates scoliosis per pt. report. Pt. reports previous Physical Therapy provided some symptom relief especially with traction and stretches, however, pt. reports being sore w/ Physical Therapy. Pt. also reports having symptom relief in the past w/ prescribed Gabapentin, vocalizes not having much symptom relief w/ current prescribed medication for LBP! . Pt. RTMD in 1 month. Current medications include Amitriptyline, Cariprazine, Celecoxib, Cetirizine, Omeprazole, and Quetiapine. PMH includes S/P cogenital torticollis, S/P cranial reconstruction, S/P tubal ligation, Cholecystectomy, C- spine strain, lumbar spine bulging discs, scoliosis, osteoarthritis. New diagnosis of cancer in past 12 No months? Chief Complaint Pain,Stiff,Paresthesia, Weakness Symptom Type Ache,Throb,Sharp,Dull,Stabbing ,Numbness,Shooting Symptoms Relieved By Rest/Positioning,Ice, Prescription Meds Symptoms Aggravated By Sitting,Standing,Bending/ Stooping,Physical Activity, Twisting,Walking,Lifting Prior Functional Limitations None Current Functional Limitations Lifting,Sleeping,Standing, Sitting,Recreation Activity, Walking,Bending/Stooping Symptom Description Constant and Continuous, Activity Dependent Level of pain today (0-10) 6 Pain scale - at its best (0-10) 5 Pain scale - at its worst (0-10) 9 Lumbopelvic Eval Posture Thoracic Spine Posture Standing Position Fixed Scoliosis on (R) Lumbar Spine Posture Standing Position Fixed Scoliosis on (L) Assistive device Assistive Devices None / NA Gait Observation General Gait Pattern Observation No Deviations/Normal Palapation tenderness bilateral thoracic spinal tenderness No lumbar spinal tenderness Yes: L1-S1(worsening L4-S1) paraspinal tenderness Yes: B/L adjacent LSPS to lumbar spinal TTP above buttock tenderness Yes Lumbar/Sacral Palpation Findings Tenderness Lumbar/Sacral Palpation Overall Comment grade 4 +TTP Accessory Movement L-spine Vertebrae Accessory Movements Central P/A [place],Right P/A that Elicit Symptoms [place],Left P/A [place] L2 bilateral L3 bilateral L4 bilateral L5 bilateral S1 bilateral Range of Motion Lumbar Spine Active Flexion Range of 50 Motion (degrees) Lumbar Spine Active Extension Range of 8 Motion (degrees) Left Lumbar Spine Lateral Flexion Active 11 Range of Motion (degrees) Right Lumbar Spine Lateral Flexion 11 Active Range of Motion (degrees) Lumbar Spine ROM Limitations Soft Tissue Tightness,Bony Restriction,Muscle Tone,Pain Manual Muscle Test Bilateral Knee Extension Strength Grade 3+ Fair+ Knee Flexion Strength Grade 3+ Fair+ Hip Flexion Strength Grade 3+ Fair+ Hip Abduction Strength Grade 4- Good- Hip Adduction Strength Grade 4- Good- Hip External Rotation Strength Grade 4- Good- Hip Internal Rotation Strength Grade 4- Good- Hip Extension Strength Grade 4 Good Gluteus Brayan Strength Grade 4 Good Extensor Hallucis Longus Strength Grade 4 Good Ankle Dorsiflexion Strength Grade 4 Good Gastronemius/Soleus Strength Grade 4 Good DTR Rt Patellar 3+ Lt Patellar 3+ Rt Gastroc/Soleus 1+ Lt Gastroc/Soleus 1+ Altered Sensation Bilateral LE Dermatome Level L1,L2,L3,L4,L5,S1 Comment light touch sensation symmetrical in BLEs in above patterns Special Tests Lumbar Spine Screen Positive Forward Bending Test- Standing Positive Left,Positive Right Hip Piriformis Test Positive Left,Positive Right Sciatic Nerve Tension Test Positive Left,Positive Right Hip 90-90 Straight Leg Raise Test Positive Left,Positive Right Prashanth Test Positive Lumbar [place] Distraction Test/Manual Positive Traction Outpatient Therapy Assessment Impairments Problems/Impairmments Palpation Tenderness,Impaired Range of Motion,Impaired Strength,Impaired Endurance, Impaired Walking,Impaired Standing,Impaired Sitting, Impaired Lifting,Impaired Incline Stepping,Impaired Stepping on Uneven Surface, Impaired Bending,Impaired Recreational Activities, Impaired Work Activities, Subjective C/O Pain,Impaired Self Care/Self Management Prognosis Rehab Potential Good Comment w/ HEP compliancy Clinical Impression Consistent with Diagnosis Yes Consistent with B/L Lumbago w/ Radiculopathy Short Term Goals Number of Weeks 2 Decreased Palpation Tenderness Yes: grade 1-2 +TTP to TTP assessment above Decrease Subjective C/O Pain Yes: worse:11/09 Patient to be Ind w/ HEP Yes Half-Way Goals Number of Weeks 4-6 Decreased Palpation Tenderness Yes: grade 1 +TTP to TTP assessment above Increase Range of Motion Yes: lumbar AROM >85% norms grossly Increase Strength Yes: 4+ to 11/04 BLE hip/knee MMT scores grossly Increase Ability to Walk Yes Increase Ability to Stand Yes Increase Ability to Sit Yes Return to Recreational Activities Yes: 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 Improve Oswestry Score Yes Decrease Subjective C/O Pain Yes: worse:-09/09 Improve Self Care/Self Management Yes: improved ability sleep Patient to be Ind w/ Advanced HEP Yes Outpatient Therapy Plan of Care Treatment Plan May Include Therapeutic Exercise Including Home Yes Exercise Program Manual Therapy Techniques Yes Neuromuscular Re-education Yes Therapeutic Activities to Return to Yes Previous Functional/Work Level ADL/Self Care Education Yes Mechanical Traction Yes Dry Needling Yes Thermal Modalities Yes Electrical Stimulation Yes Ultrasound/Phonophoresis Yes Iontophoresis Yes Vasopneumatic Compression Pump Yes Massage Yes Eval/Re-Eval Yes Frequency Times per week 2 Duration Number of Weeks 4-6 Addendums This patient is a candidate for social No or vocational rehab? Patient/Guardian verbally acknowledges Yes understanding of treatment program and consents to further treatment? Patient/Guardian verbally acknowledges Yes understanding of diagnosis, prognosis and goals for treatment? Eval Complexity PT Charges 16386 - Low Complexity Shoulder/Elbow Eval Shoulder Objective Measurements Elbow Objective Measurements PHYSICIAN CERTIFICATION: I certify the specified therapy services for Ana Rosa Fontana are required, authorized, and reviewed every 30 days.
== END 2023-07-17 11:34 | disposition home or self-care (01) ==
LOC: PT 09:00
PROVIDERS: PCP Nurse Practitioner Family; Visit Provider Nurse Practitioner Family
DX: M54.50 Low back pain, unspecified (principal); M54.16 Radiculopathy, lumbar region
CPT/HCPCS: 97010; 97014; 97110; 97140; 97163; G0283

== ENCOUNTER → 2023-07-13 10:38 | Outpatient (POV) | payer MEDICAID, SELFPAY ==
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
[2023-07-13 11:25] VITALS: BP 147/97; PULSE 126; RESP 19; O2SAT 99; BMI 29.2
== END | disposition home or self-care (01) ==
PROVIDERS: PCP Nurse Practitioner Family; Visit Provider Nurse Practitioner Family
DX: M54.16 Radiculopathy, lumbar region (principal); M54.50 Low back pain, unspecified
CPT/HCPCS: 99212; G0463

== ENCOUNTER → 2023-07-28 09:26 | Outpatient (POV) | payer MEDICAID, SELFPAY ==
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
[2023-07-28 12:30] VITALS: BP 130/86; PULSE 123; RESP 18; O2SAT 99; BMI 30.2
== END | disposition home or self-care (01) ==
PROVIDERS: PCP Nurse Practitioner Family; Visit Provider Nurse Practitioner Family
DX: M54.16 Radiculopathy, lumbar region (principal)
CPT/HCPCS: 99212; G0463

== ENCOUNTER 2023-08-08 07:49 | Day surgery (SDC) | payer MEDICAID, SELFPAY ==
[2023-08-08 08:24] VITALS: BP 126/73; PULSE 110; RESP 18; TEMP 36.3; O2SAT 99; BMI 30.9
[2023-08-08 08:41] VITALS: BP 118/79; PULSE 121; RESP 20; O2SAT 99
[2023-08-08] MEDS: methylPREDNISolone ACETATE 80MG/ML VIAL 80 MG (08:41)
[2023-08-08 08:42] VITALS: BP 118/79; PULSE 130; RESP 20; O2SAT 99
[2023-08-08 08:43] VITALS: BP 146/87; PULSE 100; RESP 18; O2SAT 99
--- NOTE | 2023-08-08 08:55 | EXP.PAIN.PRO ---
Procedure Date: 08/08/23 Time: 08:25 Anesthesiologist:: Yevgeniy Nobles CRNA Complications:: None Pre-procedure Diagnosis:: Degenerative disc lumbar spine multilevels. Lumbar radiculopathy. Post-procedure Diagnosis:: Same. Indications for Procedure:: Is a very pleasant 33-year-old female comes our clinic today for lumbar epidural steroid injection L4-5 level. Patient describes low back pain is constant, dull, aching. Patient also reports bilateral hip and leg radicular symptoms at times. She has degenerative disc lumbar spine multilevels. Lumbar radiculopathy. Procedure Details:: Procedure: Lumbar epidural steroid injection under fluoroscopy Informed consent was obtained and the risks and benefits of the procedure were explained to the patient. The patient was taken to the procedure room and noninvasive monitors placed, including noninvasive blood pressure cuff and pulse oximeter. The back was viewed using C-arm Fluoroscopy and prepped using Chloraprep as a cleansing solution and the L4-L5 interspace was palpated. Skin and subcutaneous tissues were anesthetized using lidocaine 1.5% and a 25-gauge needle. After this, an 18-gauge Touhy epidural needle was placed into the L4-L5 interspace and advanced using fluoroscopic guidance and loss of resistance to air until the epidural space was encountered. After confirmation of needle placement in the epidural space, with dye, a solution containing normal saline, 3 mL and Depo-Medrol 80 mg were incrementally injected into the lumbar epidural space. The patient tolerated the procedure well with no complications. The patient was observed in the Pain Clinic and then discharged home neurologically intact. Plan and Disposition:: Patient was discharged without incident.
== END 2023-08-08 08:43 | disposition home or self-care (01) ==
LOC: SC.PAINP 07:49
PROVIDERS: PCP Nurse Practitioner Family; Visit Provider Nurse Anesthetist, Certified Registered
DX: M51.16 Intervertebral disc disorders with radiculopathy, lumbar region (principal)
CPT/HCPCS: 62323; J1040

== ENCOUNTER 2023-08-23 08:42 | Outpatient (POV) | payer MEDICAID, SELFPAY ==
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
[2023-08-23 10:13] VITALS: BP 123/78; PULSE 106; RESP 20; O2SAT 100; BMI 24.0
== END 2023-08-23 23:59 | disposition home or self-care (01) ==
PROVIDERS: PCP Nurse Practitioner Family; Visit Provider Nurse Practitioner Family
DX: M54.16 Radiculopathy, lumbar region (principal); M54.50 Low back pain, unspecified
CPT/HCPCS: 99212; G0463

== ENCOUNTER 2023-08-24 08:44 | Outpatient (CLI) | payer MEDICAID, SELFPAY ==
--- NOTE | 2023-08-24 08:59 | MR_ITS ---
FINAL REPORT CLINICAL HISTORY: LBP COMPARISON: none FINDINGS: Multiplanar MR imaging of the lumbar spine was performed without contrast. On the sagittal T2-weighted images, the disc spaces are preserrved. The vertebrae are of normal height. The vertebral alignment is normal. L1-2: There is no significant canal stenosis or neural foraminal narrowing. L2-3: There is no significant canal stenosis or neural foraminal narrowing. L3-4: There is no significant canal stenosis or neural foraminal narrowing. L4-5: Mild diffuse disc bulge. Mild bilateral neural foraminal narrowing. L5-S1: There is no significant canal stenosis or neural foraminal narrowing. IMPRESSION: Mild disc bulge at L4-5 with mild bilateral neural foraminal narrowing. Reviewed, Interpreted and Dictated by Arik Garcia MD Transcribed by Margaret Sadler Authenticated and [facility]
== END 2023-08-24 23:59 ==
LOC: RAD 08:45
PROVIDERS: PCP Nurse Practitioner Family; Visit Provider Nurse Practitioner Family
DX: M51.26 Other intervertebral disc displacement, lumbar region (principal)
CPT/HCPCS: 72148; 76376

== ENCOUNTER 2024-08-01 09:31 | Outpatient (POV) | payer MEDICAID, SELFPAY ==
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
[2024-08-01 10:26] VITALS: PULSE 100; RESP 14; O2SAT 100; BMI 22.2
--- NOTE | 2024-08-02 16:18 | PC.NURSE ---
Per provider SHAWANDA Diamond request I have spoken with pt on the phone. Notified pt that as discussed with her and provider we did try to obtain previous provider notes on pt, we were not able to obtain copies of previous providers notes after requesting them. Per SHAWANDA Diamond the pain management office will not be ordering gabapentin for patient. Patient asked if this was just until our office can get previous providers notes on her? I stated to patient No, provider Dara stated to notify you that she will not be ordering a prescription of gabapentin. Pt verbalized understanding.
== END 2024-08-01 23:59 | disposition home or self-care (01) ==
PROVIDERS: PCP Nurse Practitioner Family; Visit Provider Nurse Practitioner Family
DX: M54.16 Radiculopathy, lumbar region (principal); M54.50 Low back pain, unspecified; F17.210 Nicotine dependence, cigarettes, uncomplicated; Z73.89 Other problems related to life management difficulty
CPT/HCPCS: 99212; G0463

== ENCOUNTER 2024-08-29 08:57 | Outpatient (POV) | payer OTHER, SELFPAY ==
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
[2024-08-29 09:51] VITALS: BP 112/72; PULSE 66; RESP 16; O2SAT 93; BMI 26.2
== END 2024-08-29 23:59 | disposition home or self-care (01) ==
PROVIDERS: PCP Nurse Practitioner Family; Visit Provider Nurse Practitioner Family
DX: M54.16 Radiculopathy, lumbar region (principal); M54.50 Low back pain, unspecified; F17.210 Nicotine dependence, cigarettes, uncomplicated
CPT/HCPCS: 99212; G0463